=== PATIENT | male | born 2000 | race Caucasian/White ===

== ENCOUNTER 2023-03-15 11:16 | Emergency (ER) | payer MEDICAID ==
[~2023-03-15] VITALS: Ht 180.3 cm; Wt 86.0 kg
[2023-03-15 11:33] VITALS: TEMP 98; O2SAT 97
[2023-03-15 12:45] VITALS: BP 150/94; PULSE 85; RESP 20
[2023-03-15] MEDS ORDERED: KETOROLAC 30MG/ML VIAL IM ONE (12:45)
[2023-03-15] MEDS ORDERED: NAPR-1176 MT (13:35)
[2023-03-15] MEDS ORDERED: LIDO700A15 TP (13:35)
== END 2023-03-15 14:02 | disposition home or self-care (01) ==
LOC: ER 11:16
DX: M79.631 Pain in right forearm (principal); M25.571 Pain in right ankle and joints of right foot; M79.671 Pain in right foot; M25.521 Pain in right elbow; V49.49XA Driver injured in collision with other motor vehicles in traffic accident, initial encounter; Y93.89 Activity, other specified; Y92.89 Other specified places as the place of occurrence of the external cause; Y99.8 Other external cause status
CPT/HCPCS: 73080; 73090; 73630; 96372; 99284; J1885; Z7610